=== PATIENT | female | born 1935 | race Caucasian/White ===

== ENCOUNTER 2018-07-13 13:42 | Inpatient (IN) | payer MEDICARE, MEDICAID ==
--- NOTE | ~2018-07-13 | PR ---
[place], [place] PROGRESS NOTE NAME: LULÚ BROWNLEE UNIT #: [id number] ROOM: 310 DOCTOR: JASBIR GUDINO MD BIRTHDATE: [birth year] DOS: 07/17/2018 CHIEF COMPLAINT: "I should like some more breakfast please." SUMMARY OF THE VISIT: The patient was interviewed as she was sitting at a table with several female peers. She engaged more readily in conversation. She did actually spontaneously request breakfast. Staff did report she ate everything on her plate in a hurry to get her some yogurt to see if this would satisfy her. Staff also report that yesterday afternoon, she became very agitated and aggressive and seems to sundown in the late afternoon early evening. MENTAL STATUS: She is alert and oriented to person, doubtful to place, certainly not time. Mood does still seem to be labile. Affect at times is inappropriate. Short term memory is poor. PLAN: I will maximize out her dose of Exelon patch, bringing it from 9.5 to 13.3 mg a day. I will change the time from the nighttime Risperdal from bedtime to 1600 hours to see if this can offset her sundowning, continue to engage in individual and ashley milieu, activity, returning to the least restrictive environment when psychiatrically stable. JASBIR GUDINO MD CM:PNTRANS [id number] JASBIR GUDINO MD 07/17/18 1130 interface
--- NOTE | ~2018-07-13 | PR ---
[place], [place] PROGRESS NOTE NAME: LULÚ BROWNLEE UNIT #: [id number] ROOM: 310 DOCTOR: JASBIR GUDINO MD BIRTHDATE: [birth year] DOS: 07/25/2018 CHIEF COMPLAINT: "Morning." SUMMARY OF THE VISIT: The patient was interviewed as she was sitting in a Harika chair in the dining area. She was bright and pleasant upon approach. Her responses still tended to be short and simple and at times totally inappropriate. However, on the positive side, there was no agitation, no mood lability, no hostility. There was also no sedation or somnolence. MENTAL STATUS: She is alert and oriented to self only. For the most part, mood is fairly euthymic. Affect appropriate. Speech rate and pattern is very slow and deliberate. There is a great deal of processing difficulty and short term memory continues to be problematic. PLAN: I will go ahead and check a valproic acid level in the a.m. to ensure that it is therapeutic and not too low or high. We will continue her other psychotropics, continue to engage in individual and ashley milieu activity, returning to the least restrictive environment when psychiatrically stable. JASBIR GUDINO MD CM:PNTRANS [id number] JASBIR GUDINO MD 07/25/18 2308 interface
--- NOTE | ~2018-07-13 | DS ---
[place], [place] DISCHARGE SUMMARY NAME: LULÚ BROWNLEE UNIT #: [id number] ROOM: 310 DOCTOR: JASBIR GUDINO MD BIRTHDATE: [birth year] DOS: 07/26/2018 CHIEF COMPLAINT: "Oh there it is, I think." HISTORY OF PRESENT ILLNESS: This is an 82-year-old white female who resides at [facility] in [place], [place]. The patient had only been there several weeks when her behavior escalated to the point where she was putting both herself and others at significant risk for harm. The patient was repeatedly exit seeking there and when redirected, became both verbally and physically aggressive towards staff. This worsened to the point where she struck out at staff. Staff did not feel that they were able to adequately meet her needs due to her severe confusion and agitation. The patient was admitted to the [facility] at [facility] to rule out organic factors and to attempt to stabilize on medication. SUMMARY OF HOSPITAL COURSE: The patient was admitted to the unit where her Invega was discontinued in lieu of Risperdal 0.5 mg in the morning and 1 mg at night. This was eventually switched to Risperdal M-Tab because she was episodically noncompliant. Exelon patch 4.6 mg a day was initiated along with Namenda 5 mg a day. Her citalopram was discontinued due to ineffectiveness. Routine screening examinations revealed her to have a low normal vitamin B12 level of 250, so she was treated with vitamin B12 injection of 1000 mcg IM monthly. Additionally, her vitamin D level was low at 15.1, so she was given vitamin D 5000 International Units daily. Over the course of her stay, the Risperdal was increased slightly to 1 mg twice a day and Depakote 250 mg 3 times a day was added to augment the effectiveness of the Risperdal. Over the course of her stay, her Exelon patch and her Namenda were both brought to their maximum dose. Exelon patch being brought up to 13.3 mg a day and Namenda to 10 mg b.i.d. again with excellent results. During her stay, it became very evident that she was having periods of excessive inappropriate crying. She would cry for no reason at all and seemed totally perplexed, the tears were there. This seemed to be pseudobulbar affect symptomatology and Nuedexta 20-10 was started once a day and then subsequently 1 every 12 hours. This had a dramatic improvement on her overall behavior. The crying stopped. She became much more calm and pleasant. There was no agitation, no aggression. With this combination of medications, the patient did seem very happy and satisfied. There was no exit seeking. There was no mood lability. There was also no sedation or somnolence. The patient improved dramatically enough to return back to [facility]. MENTAL STATUS AT DISCHARGE: The patient was alert and oriented to self. Mood does seem to be more euthymic. Affect is much more appropriate. Her speech rate and pattern is slow and deliberate and she does have processing difficulty. Short-term memory is very poor. FINAL DIAGNOSES: Intermittent explosive disorder, pseudobulbar affect, and Alzheimer's dementia. DISPOSITION: All of her prescriptions have been printed and will be sent with her. At the time of discharge, she was medically and psychiatrically stable. [place], [place] DISCHARGE SUMMARY NAME: [facility]E [id number] UNIT #: [id number] ROOM: 310 DOCTOR: JASBIR GUDINO MD BIRTHDATE: [birth year] JASBIR GUDINO MD CM:DISCHARG [id number] JASBIR GUDINO MD 07/26/18 1130 interface
--- NOTE | ~2018-07-13 | PR ---
[place], [place] PROGRESS NOTE NAME: LULÚ BROWNLEE UNIT #: [id number] ROOM: 310 DOCTOR: JASBIR GUDINO MD BIRTHDATE: [birth year] DOS: 07/20/2018 INTERVAL NOTE CHIEF COMPLAINT: "Oh, hi there." SUMMARY OF THE VISIT: The patient was interviewed as she was sitting in the dining area in a Harika chair and interacting with a staff member in a female peer. She is much more alert and conversant. She mixes reasonable responses with outright gibberish and at times will mumble nonsensically. She though is much more interactive. There is a level of flirtatious and intrusiveness noted and nurses are consistent in stating that she has become very intrusive with others, sexually preoccupied at times and very difficult to redirect. MENTAL STATUS EXAMINATION: This morning, she is alert and oriented to person, doubtful to place or time. She remains for the most part pleasantly confused with me. She does appear to be somewhat hypomanic in that she is much more talkative and on the verge of being inappropriate. There are no outward visual or auditory hallucinations, although staff reported that they do see the presence of these memory remains suspect. PLAN: I will renew her p.r.n. Ativan should she require intervention. I will start her on Depakote 250 mg 3 times a day to help with the manic impulsivity. We will monitor for risk and benefits. We will continue to engage in individual and ashley milieu activity, returning to the least restrictive environment when psychiatrically stable. JASBIR GUDINO MD CM:PNTRANS [phone] JASBIR GUDINO MD 07/21/18 0524 interface
--- NOTE | ~2018-07-13 | PR ---
[place], [place] PROGRESS NOTE NAME: LULÚ BROWNLEE UNIT #: [id number] ROOM: 310 DOCTOR: JASBIR GUDINO MD BIRTHDATE: [birth year] DOS: 07/16/2018 INTERVAL NOTE CHIEF COMPLAINT: "That would be okay if you could do that." SUMMARY OF THE VISIT: The patient was interviewed in the dining area where she was sipping on orange juice. She continues to be very confused and disjointed in her thinking, but at times, did not make sense today, especially when I discussed her breakfast and fluid needs. She was able to clearly tell me that she would like something more to drink. Otherwise, she was pleasantly confused. There was no agitation or aggression, no mood lability. MENTAL STATUS: She is alert and oriented to person, doubtful to place, not to time. Mood does seem to be trending towards euthymia. Affect is more appropriate. There is no paige, hypomania or gross psychosis. Short-term memory continues to be very poor. PLAN: I will go ahead and increase her Namenda from 5 mg b.i.d. to 10 mg b.i.d. in order to maximize the potential benefits that it can have. We will continue to engage in individual and ashley milieu activity, returning to the least restrictive environment when psychiatrically stable. JASBIR GUDINO MD CM:PNTRANS [id number] JASBIR GUDINO MD 07/16/18 0100 interface
--- NOTE | ~2018-07-13 | PR ---
[place], [place] PROGRESS NOTE NAME: LULÚ BROWNLEE UNIT #: [id number] ROOM: 310 DOCTOR: JASBIR GUDINO MD BIRTHDATE: [birth year] DOS: 07/21/2018 INTERVAL NOTE CHIEF COMPLAINT: "Oh, there you are." SUMMARY OF THE VISIT: The patient was interviewed as she was sitting in a Harika chair in the dining room. As I approached, she smiled readily. She voiced no complaint. She continues to be somewhat hypomanic in presentation. In addition to this, nurses report periods of inappropriate excessive crying without tears. This seems to be a pseudobulbar like symptom complex. MENTAL STATUS: She is alert and oriented only to self. Mood does seem to be trending towards euthymia. Affect is much more appropriate. There is no paige, but solo hypomania is present. She is very confused and disjointed and short-term memory is very poor. PLAN: I will continue her current psychotropic regimen, but add Nuedexta 20-10 one a day and plan to increase this to 1 twice daily in a couple of days. We will continue to engage in individual and ashley milieu activity, returning to the least restrictive environment when psychiatrically stable. JASBIR GUDINO MD CM:PNTRANS [phone] [id number] JASBIR UGDINO MD 07/21/182114 interface
--- NOTE | ~2018-07-13 | WRIGHTHP ---
[place], [place] PATIENT HISTORY AND PHYSICAL EXAM NAME: LULÚ BROWNLEE UNIT #: [id number] ROOM: 310 DOCTOR: JASBIR GUDINO MD BIRTHDATE: [birth year] DOS: 07/14/2018 INITIAL PSYCHIATRIC EVALUATION CHIEF COMPLAINT: "Oh there it is I think." SUMMARY OF THE VISIT: This is an 82-year-old white female who resides at [facility] in [facility]. The patient had only been there for several weeks when her behavior has continued to escalate to the point where she is putting both herself and others at significant risk of harm. The patient has been repeatedly exit seeking there and when redirected has become verbally and physically aggressive towards staff. Her behavior has worsened to the point where she has struck out at staff and has put herself at substantial risk of harm. The facility does not feel that they are going to be able to adequately meet her needs because of her severe confusion and significant agitation and verbal and physical aggression. She is admitted now to the [facility] at [facility] to rule out physical issues to engage in individual and ashley milieu activity and to stabilize on medication, returning to the least restrictive environment when psychiatrically stable. PAST MEDICAL HISTORY: Remarkable for Alzheimer's dementia, hypertension, GERD, hyperlipidemia and a benign lung nodule. SOCIAL HISTORY: The patient is a cigarette smoker, amount and length unknown. She does not drink alcohol nor does she use illicit drugs. ALLERGIES: She lists no known allergies. STRENGTHS: Good verbal skills. WEAKNESSES: Cognitive decline, poor coping skills. MENTAL STATUS: The patient is alert and oriented only to self. She is very confused and disoriented. She rambles almost nonsensically and when asked specific questions, she is unable to respond in an appropriate fashion. She was pleasant, however, upon approach and there was no agitation or aggression directed directly towards me. There was no symptom suggestive of hypomania or paige. There are no gross psychotic symptoms. She does process conversation extremely slow and her short term memory is almost nonexistent. DIAGNOSES: Intermittent explosive disorder and Alzheimer's dementia. PLAN: The patient had been on Invega well at the rehab facility, I have switched her to Risperdal 0.5 mg in the morning and 1 mg at nighttime. I have also started her on Exelon patch 4.6 mg a day and increased her Namenda from 5 mg a day to 5 mg twice daily. I have discontinued her citalopram to try to simplify her drug regimen. Routine screening examinations upon admission showed her to have a low normal vitamin B12 level of 250. I will treat with vitamin B12 injection 1000 mcg IM monthly. Additionally, her vitamin D level was low at 15.1. I will treat with vitamin D 5000 international units daily. We will [place], [place] PATIENT HISTORY AND PHYSICAL EXAM NAME: LULÚ BROWNLEE UNIT #: [id number] ROOM: [facility] DOCTOR: SHAHAB WAY,JASBIR BIRTHDATE: [birth year] engage her in individual and ashley milieu activity. I have discussed the case with social media content manager who is aware of a need for alternative placement. We will explore options and discharge then when psychiatrically stable. JASBIR GUDINO MD CM:HISPHYS:PATIENT HISTORY AND PHYSICAL EXAMINATION [id number] JASBIR GUDINO MD 07/14/18 0914 interface
--- NOTE | ~2018-07-13 | PR ---
[place], [place] PROGRESS NOTE NAME: LULÚ BROWNLEE UNIT #: [id number] ROOM: 310 DOCTOR: JASBIR GUDINO MD BIRTHDATE: [birth year] DOS: 07/19/2018 INTERVAL NOTE CHIEF COMPLAINT: "Look who I have here." SUMMARY OF THE VISIT: The patient was interviewed as she was interacting with a male peer as well as a staff member. As I note down to engage her in conversation, she smiled readily and seemed to identify me as somebody that she knew. She was bright and pleasant, very cooperative, even spontaneous in talking to me. There was no agitation or aggression noted. There was no sedation, somnolence, extrapyramidal symptoms or tardive dyskinesia noted. MENTAL STATUS: She remains alert and oriented to self, unclear place and certainly not time. Mood does seem to be more euthymic and it does seem to be a gradual trend in her overall improvement. She is much more spontaneous than upon admission and able to converse more readily. There is no symptom suggestive of hypomania or paige and likewise, there are no overt auditory or visual hallucinations. Short-term memory is very poor. PLAN: I will maintain her current dose of Risperdal as well as her current dose of Exelon patch and Namenda. We will continue to engage in individual and ashley milieu activity, returning to the least restrictive environment when psychiatrically stable. JASBIR GUDINO MD CM:PNTRANS 6 JASBIR GUDINO MD 07/19/18 0958 interface
--- NOTE | ~2018-07-13 | PR ---
[place], [place] PROGRESS NOTE NAME: LULÚ BROWNLEE UNIT #: [id number] ROOM: 310 DOCTOR: JASBIR GUDINO MD BIRTHDATE: [birth year] DOS: 07/15/2018 INTERVAL NOTE CHIEF COMPLAINT: "How do you get this thing off?" SUMMARY OF THE VISIT: The patient was interviewed as she was sitting in a Harika chair in the dining area. She was very much fixated on getting the laptop of her Harika chair off. Most of her responses, otherwise, were nonsensical. She did not respond appropriately to any question asked and tended to basically give a tirade of gibberish. She was pleasant, however, and not agitated in any way even when she was somewhat preoccupied with the Harika chair tray top, it was not agitated, but rather more asking in a polite way to have it removed. Nurses did report that they would like to try her on a Merry Walker later in the day to see if this makes her more comfortable. Outwardly, she is tolerating the current medication regimen well without sedation, somnolence, extrapyramidal symptoms or tardive dyskinesia. MENTAL STATUS EXAMINATION: She is alert and oriented to self only. I doubt she realizes she is in the hospital and she is certainly not oriented to time. Mood for the most part is fairly euthymic and she is redirectable with minimal support. There is no gross hypomania or paige. There are no gross auditory or visual hallucinations. She does process conversation extremely slowly and inappropriately and her short-term memory is almost nonexistent. PLAN: I will go ahead and increase her Exelon patch from 4.6 mg a day to 9.5 mg a day, attempting to impact positively on ADL maintenance, behavior and cognition. Continue to engage in individual and ashley milieu activity, returning to the least restrictive environment when psychiatrically stable. JASBIR GUDINO MD CM:PNTRANS [phone] JASBIR GUDINO MD 07/16/18 0011 interface
--- NOTE | ~2018-07-13 | EKG ---
[place], [place] ELECTROCARDIOGRAM REPORT NAME: LULÚ BROWNLEE UNIT #: [id number] ROOM: 310 DOCTOR: HAL DRAFT REPORT BIRTHDATE: [birth year] [facility] Test Date: 2018-07-13 Test Time: 17:25:37 Pat Name: LULÚ BROWNLEE Department: Room: 310 Gender: F Post Closer: NEIL : 1935 Requested By: MURALI MENENDEZ Order Number: [id number] Reading MD: Fredy Longo MD Measurements Intervals [place] Rate: 66 P: 74 ND: 165 QRS: 38 QRSD: 140 T: 50 QT: 519 QTc: 544 Interpretive Statements Sinus rhythm Atrial premature complex Left bundle branch block Electronically Signed On 07-15-2018 9:09:15 PDT by Fredy Longo MD CM:EKGRPT:ELECTROCARDIOGRAM REPORT [id number] MURALI TATE DRAFT REPORT MURALI MENENDEZ DO
--- NOTE | ~2018-07-13 | PR ---
[place], [place] PROGRESS NOTE NAME: LULÚ BROWNLEE UNIT #: [id number] ROOM: 310 DOCTOR: JASBIR GUDINO MD BIRTHDATE: [birth year] DOS: 07/18/2018 CHIEF COMPLAINT: "No, I don't want to color. I want this thing off me." SUMMARY OF THE VISIT: The patient was interviewed as she was sitting looking at a magazine while sitting in a Harika chair with a lap tray. The patient was able to make eye contact and engage in conversation, but she was rather fixated on having me removed the lap tray. She voiced no other complaints. Nurses report that off and on she has become somewhat agitated during the day and yells out. She is tolerating the current medication regimen well, and I see no sedation, somnolence, extrapyramidal symptoms, or tardive dyskinesia. MENTAL STATUS: She is alert and oriented with significant time gaps as well as place gaps. Mood does seem to be fairly euthymic this morning with some anxiety noted. No hypomania or paige is noted. Short-term memory is very poor. PLAN: I will change her Risperdal to M-Tab form 1 mg in the morning instead of 0.5 mg and continue the 1 mg at 1600 hours. We will continue to engage in individual and ashley milieu activity, returning to the least restrictive environment when psychiatrically stable. JASBIR GUDINO MD CM:PNTRANS [id number] JASBIR GUDINO MD 07/18/18 1313 interface
[2018-07-13] MEDS ORDERED: ACID REDUCER20 MG PO (14:22)
[2018-07-13] MEDS ORDERED: CELEXA20 MG PO (14:25)
[2018-07-13] MEDS ORDERED: PALIPERIDONE ER3 MG PO (14:26)
[2018-07-13] MEDS ORDERED: NORVASC5 MG PO (14:27)
[2018-07-13] MEDS ORDERED: NAMENDA-5 PO (14:27)
[2018-07-13] MEDS ORDERED: INVEGA SUS39 MG/0.25 IM (14:28)
[2018-07-13] MEDS ORDERED: RISPERDAL1 M1 PO (14:29)
[2018-07-13] MEDS ORDERED: RISPERDAL0.5 MG PO (14:29)
[2018-07-13] MEDS ORDERED: EXELON1 EACH T (14:30)
[2018-07-13] MEDS ORDERED: ATIVAN1 MG PO (14:30)
[2018-07-13 15:40] VITALS: BP 140/72
[2018-07-13 15:42] VITALS: BP 140/72
[2018-07-13 17:15] LABS: BASO % 0.4 % (0.0-1.0); EOS # 0.1 10*3/uL (0.0-0.4); EOS % 0.7 % (1.0-4.0); HEMATOCRIT 40.4 % (37.0-47.0); HEMOGLOBIN 12.9 g/dl (12.0-16.0); LYMPH # 1.6 10*3/uL (1.3-4.4); LYMPH % 21.4 % (27.0-41.0); MEAN CELL VOLUME 98.1 fl (81.0-99.0); MEAN CORPUSCULAR HGB 31.3 pg (27.0-31.0); MEAN CORPUSCULAR HGB CONC 31.9 g/dl (33.0-37.0); MEAN PLATELET VOLUME 10.3 fl (9.6-12.3); MONO # 0.7 10*3/uL (0.1-1.0); MONO % 9.1 % (3.0-9.0); NEUT # 5.1 10*3/uL (2.3-7.9); NEUT % 68.1 % (47.0-73.0); PLATELET COUNT AUTOMATED 244 10*3/uL (130-400); RED BLOOD COUNT 4.12 10*6/uL (4.10-5.10); RED CELL DISTRI WIDTH 13.3 % (0-14.5); WHITE BLOOD COUNT 7.5 10*3/uL (4.8-10.8)
[2018-07-13 17:31] LABS: CHLORIDE 111 mmol/L (98-107); POTASSIUM 3.4 mmol/L (3.5-5.1); SODIUM 145 mmol/L (136-145)
[2018-07-13 17:40] LABS: ALBUMIN 3.4 gm/dl (3.1-4.5); ALKALINE PHOSPHATASE 121 U/L (45-117); BUN 18 mg/dl (7-24); SGOT/AST 15 IU/L (3-35); SGPT/ALT 22 U/L (12-78); TOTAL PROTEIN 6.9 gm/dL (6.4-8.2)
[2018-07-13 17:53] LABS: VITAMIN D, 25-HYDROXY 15.1 ng/mL (30-100)
[2018-07-13 20:00] VITALS: BP 140/72
[2018-07-14 06:53] LABS: CHOLESTEROL 147 mg/dL (<200); HDL CHOLESTEROL 57 mg/dl (40-60); LDL CHOLESTEROL 70 mg/dL (9-159); TRIGLYCERIDES 102 mg/dl (<150); VLDL CHOLESTEROL 20 mg/dL (6-40)
[2018-07-14 07:29] VITALS: BP 135/70
[2018-07-14 20:00] VITALS: BP 140/80
[2018-07-14 20:15] VITALS: BP 158/79
[2018-07-14 22:20] VITALS: BP 136/70
[2018-07-15 07:53] VITALS: BP 139/68
[2018-07-15 13:11] LABS: BILIRUBIN NEGATIVE (NEGATIVE); BLOOD NEGATIVE (NEGATIVE); CLARITY SL CLOUDY (CLEAR); COLOR YELLOW (YELLOW); GLUCOSE NEGATIVE (NEGATIVE); KETONE NEGATIVE (NEGATIVE); LEUKO ESTERASE NEGATIVE (NEGATIVE); NITRITE NEGATIVE (NEGATIVE); SPECIFIC GRAVITY 1.025 (1.005-1.030); UROBILINOGEN 0.2 E.U./dl (0.2-1.0)
[2018-07-15 13:39] LABS: BACTERIA 2+; MUCOUS 3+
[2018-07-15 20:00] VITALS: BP 148/64
[2018-07-16 07:57] VITALS: BP 153/51
[2018-07-16 20:05] VITALS: BP 146/87
[2018-07-17 07:59] VITALS: BP 142/42
[2018-07-17 20:09] VITALS: BP 143/89
[2018-07-18 07:17] VITALS: BP 120/87
[2018-07-18 19:54] VITALS: BP 126/90
[2018-07-19 07:35] VITALS: BP 147/57
[2018-07-19 19:41] VITALS: BP 147/81
[2018-07-20 08:00] VITALS: BP 152/57; BP 172/76
[2018-07-20 20:00] VITALS: BP 141/62
[2018-07-21 07:36] VITALS: BP 140/62
[2018-07-21 20:05] VITALS: BP 139/59
[2018-07-22 07:29] VITALS: BP 154/85
[2018-07-22 20:00] VITALS: BP 146/64
[2018-07-23 07:46] VITALS: BP 140/64
[2018-07-23 20:00] VITALS: BP 140/65
[2018-07-24 07:03] VITALS: BP 145/59
[2018-07-24 20:00] VITALS: BP 140/60
[2018-07-25 07:44] VITALS: BP 157/52
[2018-07-25 20:00] VITALS: BP 153/62
[2018-07-26 07:38] VITALS: BP 156/79
[2018-07-26] MEDS ORDERED: NEUDEXT PO (11:01)
[2018-07-26] MEDS ORDERED: EXELON13.3 MG/21 T (11:01)
[2018-07-26] MEDS ORDERED: B121000 MCG/1 IM (11:01)
[2018-07-26] MEDS ORDERED: DIVALPROEX SOD125 M1 PO (11:01)
[2018-07-26] MEDS ORDERED: VITAMIN D5000 UNI1 PO (11:01)
[2018-07-26] MEDS ORDERED: MEMANTINE HCL10 MG PO (11:01)
[2018-07-26] MEDS ORDERED: RISPERIDONE M-TA1 MG BC ×2 (11:01)
== END 2018-07-26 14:03 | disposition other institution (70) | DRG 883 ==
LOC: 3N 13:42
PROVIDERS: ADMIT Psychiatry & Neurology Psychiatry
DX: F63.81 Intermittent explosive disorder (principal); F02.81 Dementia in other diseases classified elsewhere, unspecified severity, with behavioral disturbance; G30.9 Alzheimer's disease, unspecified; F48.2 Pseudobulbar affect; I10 Essential (primary) hypertension; E78.5 Hyperlipidemia, unspecified; K21.9 Gastro-esophageal reflux disease without esophagitis; E55.9 Vitamin D deficiency, unspecified; E87.6 Hypokalemia; E87.8 Other disorders of electrolyte and fluid balance, not elsewhere classified; F17.210 Nicotine dependence, cigarettes, uncomplicated; Z79.899 Other long term (current) drug therapy